=== PATIENT | male | born 1985 | race Hispanic/Latino ===

== ENCOUNTER 2024-02-20 12:50 | Inpatient (IN) | payer SELFPAY ==
[2024-02-20 14:23] LABS: #Basophils 0.04 10x3/uL (0.0-0.2); #Eosinphils Less than 0.03 10x3/uL (0.0-0.7); %Basophils 0.6 % (0.0-1.0); %Eosinophils 0.2 % (0.0-10.0); %Lymphocytes 14.4 % (21.0-51.0); %Monocytes 4.6 % (0.0-10.0); Hematocrit 46.9 % (42.0-52.0); Hemoglobin 16.2 g/dL (14.0-18.0); Mean Corpuscular HGB CONC 34.5 g/dL (32.0-36.0); Mean Corpuscular Hemoglobin 31.6 pg (27.0-31.0); Mean Corpuscular Volume 91.6 fL (78.0-98.0); Mean Platelet Volume 11.4 fL (7.4-10.4); Platelet Count 238 10x3/uL (130-400); RBC Distribution Width 12.6 % (11.5-14.5); Red Blood Cell (RBC) Count 5.12 mill/uL (4.70-6.10)
[2024-02-20 14:37] LABS: ALT (SGPT) 42 U/L (8-55); AST (SGOT) 25 U/L (5-34); Albumin 3.8 g/dL (3.5-5.0); Alkaline Phosphatase 131 U/L (40-110); Anion Gap 27 mmol/L (10-20); BUN (Urea Nitrogen) 12 mg/dL (8.9-20.6); Bilirubin, Total 0.4 mg/dL (0.2-1.2); Calc. Creatinine Clearance 0 mL/min (70-130); Calcium 9.5 mg/dL (7.8-10.44); Carbon Dioxide 10 mmol/L (22-29); Chloride 96 mmol/L (98-107); Estimated GFR 64; Globulin 4.7 g/dL (2.4-3.5); Glucose 579 mg/dL (70-105); Potassium 4.6 mmol/L (3.5-5.1); Protein, Total 8.5 g/dL (6.0-8.3); Sodium 128 mmol/L (136-145)
[2024-02-20 14:51] LABS: Bacteria/HPF None Seen HPF (None Seen); Bilirubin Negative (Negative); Blood, Urine Negative (Negative); CAUTI Indications for Culture Dysuria,urgency,freq; Clarity Clear (Clear); Glucose, Urine (Dipstick) Greater than 1000 mg/dL (Negative); Ketone, Urine 80 mg/dL (Negative); Leukocyte Negative Leu/uL (Negative); Nitrite Negative (Negative); Protein, Urine (Dipstick) Negative (Neg-Trace); RBC/HPF None Seen HPF (0-3); Specific Gravity, Urine 1.033 (1.002-1.036); Squamous Epithelial None Seen HPF (0-3); Urobilinogen Normal mg/dL (Less than 2); WBC/HPF 0-3 HPF (0-3)
[2024-02-20 14:56] LABS: Urine Culture Reflex No No
[2024-02-20] MEDS ORDERED: Acetaminophen 325 MG TAB PO PRN (15:28)
[2024-02-20] MEDS ORDERED: Dextrose 5 %-0.45 % NaCl 1,000 ML IV PRN (15:29)
[2024-02-20] MEDS ORDERED: Sodium Chloride 0.9% 1,000 ML IV PRN ×4 (15:29)
[2024-02-20] MEDS ORDERED: Dextrose 50% Abboject 50 ML SYRINGE SLOW IVP PRN (15:29)
[2024-02-20] MEDS ORDERED: NS 0.9% w/ 20 MEQ KCL 1,000 ML IV PRN ×2 (15:29)
[2024-02-20] MEDS ORDERED: Electrolyte Replacement Protocol 1 EACH IVPB SCH (15:29)
[2024-02-20 17:48] VITALS: BMI 33.7
[2024-02-20 19:19] LABS: Base Excess -12.3 mEq/L (-2.0 to +3.0); Calcium, Ionized (venous) 1.19 mmol/L (1.16-1.32); Chloride (VBG) 106 mmol/L (98-106); Hematocrit-VBG 44 % (42.0-52.0); Hemoglobin (Hb) 14.8 g/dL (13.2-17.3); Potassium (VBG) 4.04 mmol/L (3.70-5.30); Sodium 138 mmol/L (133-146); pH (venous) 7.254 (7.32-7.43)
[2024-02-20 19:20] LABS: Actual Bicarbonate (HCO3v) 13.5 mEq/L (22-28)
[2024-02-20] MEDS: D5 1/2 NS w/20 mEq KCL 1,000 ML IV PRN (20:14)
[2024-02-20] MEDS: Famotidine/PF 20 mg/2ml Vial SLOW IVP SCH (20:15)
[2024-02-20 20:34] LABS: Anion Gap 19 mmol/L (10-20); BUN (Urea Nitrogen) 8 mg/dL (8.9-20.6); Calc. Creatinine Clearance 123 mL/min (70-130); Calcium 8.4 mg/dL (7.8-10.44); Carbon Dioxide 11 mmol/L (22-29); Chloride 107 mmol/L (98-107); Estimated GFR 87; Glucose 248 mg/dL (70-105); Lipase 29 U/L (8-78); Potassium 3.8 mmol/L (3.5-5.1); Sodium 133 mmol/L (136-145); Troponin I Less than 0.010 ng/mL (< 0.028)
[2024-02-21 00:17] LABS: Anion Gap 15 mmol/L (10-20); BUN (Urea Nitrogen) 7 mg/dL (8.9-20.6); Calc. Creatinine Clearance 136 mL/min (70-130); Calcium 8.3 mg/dL (7.8-10.44); Carbon Dioxide 14 mmol/L (22-29); Chloride 107 mmol/L (98-107); Estimated GFR 99; Glucose 276 mg/dL (70-105); Potassium 3.6 mmol/L (3.5-5.1); Sodium 132 mmol/L (136-145)
[2024-02-21 05:15] LABS: #Basophils 0.03 10x3/uL (0.0-0.2); %Basophils 0.7 % (0.0-1.0); %Eosinophils 1.3 % (0.0-10.0); %Lymphocytes 30.9 % (21.0-51.0); %Monocytes 10.4 % (0.0-10.0); %Neutrophils 56.3 % (42.0-75.0); Hematocrit 42.1 % (42.0-52.0); Hemoglobin 13.9 g/dL (14.0-18.0); Mean Corpuscular Hemoglobin 31.1 pg (27.0-31.0); Mean Corpuscular Volume 94.2 fL (78.0-98.0); Mean Platelet Volume 11.1 fL (7.4-10.4); Platelet Count 202 10x3/uL (130-400); RBC Distribution Width 12.6 % (11.5-14.5); Red Blood Cell (RBC) Count 4.47 mill/uL (4.70-6.10)
[2024-02-21] MEDS: Insulin Reg, Human 100 UNITS in Sodium Chloride 0.9% 100 ML IVPB SCH (05:15)
[2024-02-21 05:59] LABS: Hemoglobin A1c 13.4 % (4.0-6.0)
[2024-02-21 06:12] LABS: ALT (SGPT) 29 U/L (8-55); AST (SGOT) 17 U/L (5-34); Albumin 2.9 g/dL (3.5-5.0); Alkaline Phosphatase 90 U/L (40-110); Anion Gap 13 mmol/L (10-20); BUN (Urea Nitrogen) 6 mg/dL (8.9-20.6); Bilirubin, Total 0.4 mg/dL (0.2-1.2); Calc. Creatinine Clearance 165 mL/min (70-130); Calcium 8.2 mg/dL (7.8-10.44); Carbon Dioxide 13 mmol/L (22-29); Chloride 109 mmol/L (98-107); Estimated GFR 116; Globulin 3.1 g/dL (2.4-3.5); Glucose 211 mg/dL (70-105); Potassium 3.3 mmol/L (3.5-5.1); Sodium 132 mmol/L (136-145)
[2024-02-21] MEDS: Potassium Chloride 20 MEQ TAB PO SCH (08:50)
[2024-02-21] MEDS ORDERED: Glucagon 1 MG/ML KIT IM PRN (09:05)
[2024-02-21] MEDS ORDERED: HumaLOG 300 UNITS/3 ML VIAL SC PRN (09:05)
[2024-02-21] MEDS ORDERED: Dextrose 50% Abboject 50 ML SYRINGE SLOW IVP PRN (09:05)
[2024-02-21] MEDS ORDERED: Dextrose 5% in Water 1,000 ML IV PRN (09:05)
[2024-02-21] MEDS: HumuLIN 70/30 100 Unit/ml 10 ml Vial SC SCH ×3 (10:43→19:54)
[2024-02-21] MEDS: HumaLOG 300 UNITS/3 ML VIAL SC PRN (16:55)
[2024-02-21] MEDS: HYDROcodone/Acetaminophen 5/325 mg Tablet PO PRN (19:56)
[2024-02-22 07:24] LABS: Anion Gap 15 mmol/L (10-20); BUN (Urea Nitrogen) 7 mg/dL (8.9-20.6); Calc. Creatinine Clearance 181 mL/min (70-130); Carbon Dioxide 19 mmol/L (22-29); Chloride 104 mmol/L (98-107); Estimated GFR 119; Glucose 173 mg/dL (70-105); Potassium 3.2 mmol/L (3.5-5.1); Sodium 135 mmol/L (136-145)
[2024-02-22] MEDS: HumuLIN 70/30 100 Unit/ml 10 ml Vial SC SCH (08:48)
[2024-02-22] MEDS: Potassium Chloride 20 MEQ TAB PO SCH (09:23)
[2024-02-22] MEDS ORDERED: Electrolyte Replacement Protocol FS PRN (09:30)
[2024-02-22 13:59] VITALS: BP 117/73; TEMP 98.1
[2024-02-22] MEDS ORDERED: Famotidine 20 MG TAB PO SCH (21:00)
== END 2024-02-22 17:02 | disposition still patient (30) | DRG 639 ==
LOC: ERS 12:50 → IMCU/EMU 15:26 → MSONC 02-21 21:51
PROVIDERS: ADMIT Family Medicine; ATTEND Internal Medicine
DX: E11.10 Type 2 diabetes mellitus with ketoacidosis without coma (principal)
CPT/HCPCS: 36415; 36416; 71045; 80048; 80053; 81001; 82010; 82805; 83036; 83690; 84484; 85025; 93005; 96374; J1815; J3480; J3490; J7050; S0028